=== PATIENT | female | born 1975 | race American Indian/Alaskan Native ===

== ENCOUNTER 2025-01-17 13:39 | Emergency (ER) | payer BC ==
[~2025-01-17] VITALS: Ht 162.6 cm; Wt 66.7 kg
[2025-01-17] MEDS ORDERED: 0.9 % SODIUM CHLORIDE 1,000 ML IV STA (15:16)
[2025-01-17 15:53] LABS: BASO % 0.7 % (0.1-1.2); EOS # 0.12 (0.04-0.54); EOS % 0.9 % (0.7-7.0); LYMPH # 2.65 (1.18-3.74); LYMPH % 19.0 % (19.3-53.1); MEAN PLATELET VOLUME 9.60 fl (9.4-12.4); MONO # 0.54 (0.24-0.82); MONO % 3.9 % (4.7-12.5); NEUT # 10.48 (1.56-6.13); NEUT % 75.0 % (34.0-71.1); RED CELL DISTRIBUTION WIDTH 12.4 % (11.6-14.4)
[2025-01-17 16:18] LABS: INR 1.08
[2025-01-17 17:22] LABS: ALT/SGPT 25.0 U/L (12-78); AST/SGOT 26.0 U/L (15-37); BILIRUBIN TOTAL 0.47 mg/dL (0.3-1.2); BUN CREA RATIO 12.0 (7.0-25.0); CREATININE SERUM 0.84 mg/dL (0.55-1.02); GFR 72.67; GLOBULINA 3.1 G/DL (2.4-3.5); GLUCOSE FASTING 90.0 mg/dL (65-100); OSMOLALITY SERUM 274.0 MOSM/KG (275-295); TSH 4.5 uIU/mL (0.358-3.74)
== END 2025-01-17 18:50 | disposition home or self-care (01) ==
LOC: ER 13:39
DX: R55 Syncope and collapse (principal); E03.8 Other specified hypothyroidism; Z88.0 Allergy status to penicillin